=== PATIENT | female | born 1980 | race Caucasian/White ===

== ENCOUNTER 2018-03-19 19:41 | Emergency (ER) | payer MEDICAID, OTHER ==
[~2018-03-19] VITALS: Ht 172.7 cm; Wt 58.5 kg
[2018-03-19 19:46] VITALS: BP 109/79
[2018-03-19] MEDS ORDERED: IV NS 0.9% 1,000 ML BAG IV ONE (20:00)
--- NOTE | 2018-03-19 20:10 | NUR ---
PATIENT HAS AWOL BEFORE INTERVENTIONS HAVE TAKEN PLACE. SHE STATED "GO FUCK YOURSELF" SHE WALKED OUT. PT HAS BEEN COMBATIVE AND CURSING AT STAFF SINCE BEING IN ER. ER WANDY KELLY MADE AWARE
== END 2018-03-19 20:12 | disposition left against medical advice (07) ==
LOC: ER 19:47
DX: R00.2 Palpitations (principal); F41.9 Anxiety disorder, unspecified; Z88.8 Allergy status to other drugs, medicaments and biological substances; Z59.0 Homelessness
CPT/HCPCS: 99283; A4606; Z7610